=== PATIENT | male | born 1935 | race Caucasian/White ===

== ENCOUNTER → 2018-08-19 09:03 | Outpatient (CLI) | payer MEDICARE, OTHER, SELFPAY ==
--- NOTE | 2018-08-19 09:12 | XR_ITS ---
EXAM: XR thoracic spine 3V HISTORY: ITS.REASON: THORACIC BACK PAIN Comparison: None FINDINGS: Normal alignment. No fracture or dislocation. No lytic or blastic change. No significant degenerative change. The disc spaces are preserved. IMPRESSION: Negative thoracic spine
--- NOTE | 2018-08-19 09:12 | XR_ITS ---
XR chest 2V HISTORY: Back pain, shortness of breath, history of smoking ITS.REASON: THORACIC BACK PAIN ORDERING PHYSICIAN: Karlee Whatley MD PATIENT AGE: 83 years COMPARISON: 02/26/2012 FINDINGS: Unremarkable cardiovascular structures. There are chronic changes in the lung bases. No lobar consolidation or collapse. No acute bony findings. IMPRESSION: No change with no acute finding
== END ==
PROVIDERS: PCP Family Medicine; Visit Provider Family Medicine
DX: M54.6 Pain in thoracic spine (principal)
CPT/HCPCS: 71046; 72072

== ENCOUNTER → 2019-01-19 11:17 | Outpatient (CLI) | payer MEDICARE, OTHER, SELFPAY ==
--- NOTE | 2019-01-19 11:28 | XR_ITS ---
PROCEDURE: XR LUMBAR SPINE MIN 4V CLINICAL INDICATION: LBP , LT HIP PAIN COMPARISON: from 08/19/2018 FINDINGS: There is mild degenerative disc disease in the lower thoracic spine and upper lumbar spine. No acute fracture or dislocation. No lytic or blastic change. Facet arthritic changes are present at L4-L5 and S1. The SI joints have an unremarkable appearance. There is a 6 mm calcific density overlying the right L1 transverse process and could represent a ureteral stone. Abdominal CT may be of further value. IMPRESSION: 1. Degenerative changes. 2. Possible right ureteropelvic junction stone Dictated by: Aramis Pollock MD 01/19/2019 12:01 Electronically signed by Aramis Pollock MD in [facility] 01/19/2019 12:01
--- NOTE | 2019-01-19 11:28 | XR_ITS ---
PROCEDURE: XR HIP LT 2-3V W/PELVIS CLINICAL INDICATION: LT HIP PAIN Low back pain, left hip COMPARISON: No exams were available for comparison FINDINGS: No fracture or dislocation. No lytic or blastic change. There is generalized vascular calcification. Minimal osteoarthritic changes are noted. IMPRESSION: No acute findings. Dictated by: Aramis Pollock MD 01/19/2019 12:05 Electronically signed by Aramis Pollock MD in [facility] 01/19/2019 12:05
== END ==
PROVIDERS: PCP Family Medicine; Visit Provider Family Medicine
DX: M54.9 Dorsalgia, unspecified (principal); M25.552 Pain in left hip
CPT/HCPCS: 72110; 73502

== ENCOUNTER → 2020-01-26 13:22 | Outpatient (CLI) | payer MEDICARE, OTHER, SELFPAY ==
--- NOTE | 2020-01-26 13:35 | US_ITS ---
PROCEDURE: US KIDNEY CLINICAL INDICATION: COMPARISON: No exams were available for comparison FINDINGS: The right kidney is [id number]. No hydronephrosis, cortical thinning, or renal mass or perinephric fluid collection is evident. The left kidney is [id number]. No hydronephrosis, cortical thinning, or renal mass or perinephric fluid collection is evident. There are no previous exams available for comparison. There was a 2.5 x 1.7 cm area of decreased echogenicity in the upper pole of the right kidney which may be due to a cyst however, this is not definite as there are low level internal echoes. There is some enhanced through transmission of sound. IMPRESSION: No hydronephrosis. There is a questionable cyst along the upper pole of the right kidney. Cannot exclude the possibility of a solid lesion based on the ultrasound appearance. Suggest 3 six-month follow-up to confirm short term stability. Dictated by: Aramis Pollock MD 01/26/2020 15:10 Aramis Pollock MD in [facility] 01/26/2020 15:10
== END ==
PROVIDERS: PCP Family Medicine; Visit Provider Urology
DX: N28.89 Other specified disorders of kidney and ureter (principal)
CPT/HCPCS: 76770

== ENCOUNTER → 2020-02-10 08:02 | Outpatient (CLI) | payer MEDICARE, OTHER, SELFPAY ==
--- NOTE | 2020-02-10 08:23 | MR_ITS ---
PROCEDURE: MR PELVIS WO/W CON CLINICAL INDICATION: renal mass renal mass seen on ultrasound 01-26-20. abd pain, vomiting, diarrhea. 20ml prohance injected. pt got nauseated and vomited after injection of contrast. COMPARISON: No exams were available for comparison TECHNIQUE: Routine multiplanar multi echo sequences are performed without and with gadolinium enhancement. FINDINGS: No pelvic mass or abnormal fluid collection evident. No abnormal areas of enhancement. Minimal osteoarthritic changes are present in the hips. IMPRESSION: Unremarkable MRI the pelvis Dictated by: Aramis Pollock MD 02/14/2020 12:24 Aramis Pollock MD in [facility] 02/14/2020 12:24
--- NOTE | 2020-02-10 08:23 | MR_ITS ---
PROCEDURE: MR ABDOMEN WO/W CON CLINICAL INDICATION: renal mass renal mass seen on ultrasound 01-26-20. abd pain, vomiting, diarrhea. 20ml prohance injected. pt got nauseated and vomited after injection of contrast. COMPARISON: US US KIDNEY from 01/26/2020 TECHNIQUE: Routine multiplanar multi echo sequences are performed without gadolinium enhancement. FINDINGS: Motion artifact degrades the quality the exam. The patient experienced vomiting and nausea after contrast injection and had to get up therefore, there are some post enhanced sequences missing. Specifically, the portal venous phase was not able to be obtained. There is a lobulated cystic lesion within the left lobe of the liver measuring 18 mm this liver lesion did not demonstrate any enhancement. There is an exophytic 1.9 cm lesion projecting off the posterior aspect of the right kidney inferiorly. This is isointense on T1 and hyperintense on T2. The coronal T2 haste images however show some possible septations within the lesion and the post enhanced images suggest some in Zeynep mint. This however is questionable due to the motion artifact. Suggest patient have a CT scan with renal protocol for further evaluation. No other renal lesions are evident. The pancreas and adrenal glands have an unremarkable appearance. IMPRESSION: 1. Indeterminate right renal lesion. Motion artifact and missing post enhanced images degrade the quality of this exam. The coronal T2 haste images suggest some internal septations or nodularity and the post enhanced images suggest a solid configuration with mild enhancement. This however could is possibly due to artifact. Suggest CT of the kidneys with renal protocol without and with contrast for further evaluation. 2. Hepatic cyst Dictated by: Aramis Pollock MD 02/14/2020 11:43 Aramis Pollock MD in [facility] 02/14/2020 11:43
[2020-02-10 08:25] LABS: Blood Urea Nitrogen 31 mg/dl (9-20); Estimated Glomerular Filt Rate 41 ml/min (>60); GFR (African American) 50 ML/MIN (>60)
== END ==
PROVIDERS: PCP Family Medicine; Visit Provider Urology
DX: N28.89 Other specified disorders of kidney and ureter (principal)
CPT/HCPCS: 36415; 72197; 74183; 82565; 84520; A9576

== ENCOUNTER → 2020-03-29 14:51 | Outpatient (CLI) | payer MEDICARE, OTHER, SELFPAY ==
--- NOTE | 2020-03-29 14:56 | MR_ITS ---
PROCEDURE: MR LUMBAR SPINE WO CON CLINICAL INDICATION: LOW BACK PAIN CONSTANT LBP. PHYSICAL THERAPY NOT HELPING. LT LEG PAIN. COMPARISON: CR XR LUMBAR SPINE MIN 4V from 01/19/2019 US US KIDNEY from 01/26/2020 TECHNIQUE: Standard multiplanar multiecho sequences are performed without contrast. 3-D MIP and myelographic images are also rendered and reviewed FINDINGS: There is normal alignment. The spinal cord ends at T12-L1 level. T11-T12: Unremarkable. T12-L1: Unremarkable. L1-L2: Unremarkable. L2-L3: There is a small broad-based left paracentral lateral disc protrusion along with facet and ligamentum hypertrophy causing moderate left lateral recess narrowing and left-sided foraminal narrowing. There does appear to be some mild impingement upon the left L3 nerve root. L3-L4: Degenerative disc disease with mild bulging disc. There is moderate to severe facet and ligamentum hypertrophy with resultant canal stenosis moderate to severe bilateral lateral recess narrowing bilateral lateral recess narrowing and moderate bilateral foraminal narrowing. Canal measures 8 mm at this region. Small amount fluid is present in the facet joint on the left. L4-5: Mild bulging disc with moderate to severe facet and ligamentum hypertrophy. There is severe bilateral lateral recess narrowing along with canal stenosis and moderate to severe bilateral foraminal narrowing. Small amount fluid is present in the facet joint on the left. There is 2 mm anterolisthesis of L4. L5-S1: Mild degenerative disc disease with facet and ligamentum hypertrophy with moderate to severe bilateral foraminal narrowing. Incidental note is made of a 2 cm right renal cyst IMPRESSION: Abnormal MRI of the lumbar spine with facet and ligamentum hypertrophy resulting in lateral recess narrowing, foraminal narrowing and canal stenosis. Please see above for detailed description at each level. Small broad-based left paracentral/lateral disc protrusion at L2-L3 Dictated by: Aramis Pollock MD 03/30/2020 10:21 Aramis Pollock MD in [facility] 03/30/2020 10:21
== END ==
PROVIDERS: PCP Family Medicine; Visit Provider Family Medicine
DX: M54.5 Low back pain (principal)
CPT/HCPCS: 72148; 76376

== ENCOUNTER → 2020-08-10 08:00 | Outpatient (CLI) | payer MEDICARE, OTHER, SELFPAY ==
--- NOTE | 2020-08-10 08:11 | CT_ITS ---
PROCEDURE: CT ABDOMEN PELVIS WO CON CLINICAL INDICATION: renal mass COMPARISON: MR MR ABDOMEN WO/W CON from 02/10/2020 TECHNIQUE: Axial images obtained with sagittal and coronal reformats. All CT scans at the facility use one or more dose reduction, viz: automated exposure control, ma/kV adjustment per patient size (including targeted exams where dose is matched to indication, i.e. head), or iterative reconstruction technique. FINDINGS: LOWER THORAX: Coronary artery calcifications are noted. ABDOMEN & PELVIS: 1.6 cm hypodensity involves the left hepatic lobe and may represent a hepatic cyst within segment 2. There has been a prior cholecystectomy. The spleen shows an unremarkable appearance. Unremarkable appearing adrenal glands and pancreas. There is a 1.9 x 1.4 cm exophytic nodule projecting off the posterior and inferior aspect of the right kidney. The density is 17 Hounsfield units. The patient refused IV contrast limiting evaluation of the right renal nodule. No renal or ureteral calculi. No hydronephrosis. There is faint increased density within the central mesenteric fat nonspecific with a few scattered small mesenteric lymph nodes. No evidence of appendicitis. There are scattered colonic diverticula but no evidence of diverticulitis. There is a small umbilical hernia containing fat. There is a small left inguinal hernia containing fat. There are mild degenerative changes in the lumbar spine. There is dilatation of the right common iliac artery distally at 2 cm. There is minimal dilatation of the infrarenal portion of the aorta at 2.6 cm. Mild gynecomastia noted. IMPRESSION: 1. Indeterminate 1.9 x 1.4 cm exophytic right renal nodule. The size of the nodule is stable compared to 02/10/2020. Patient refused IV contrast limiting evaluation of the nodule. 2. Left lobe hepatic cyst 3. Patchy density within the central mesenteric fat nonspecific and could be seen with mesenteric adenitis or edema or could be idiopathic among other less common entities. 4. 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 Dictated by: Aramis Pollock MD 08/10/2020 12:50 Aramis Pollock MD in [facility] 08/10/2020 12:50
[2020-08-10 08:25] LABS: Blood Urea Nitrogen 33 mg/dl (9-20); Estimated Glomerular Filt Rate 41 ml/min (>60); GFR (African American) 50 ML/MIN (>60)
== END ==
PROVIDERS: PCP Family Medicine; Visit Provider Urology
DX: N28.89 Other specified disorders of kidney and ureter (principal)
CPT/HCPCS: 36415; 74176; 82565; 84520

== ENCOUNTER → 2021-02-22 08:16 | Outpatient (CLI) | payer MEDICARE, OTHER, SELFPAY ==
--- NOTE | 2021-02-22 08:16 | CT_ITS ---
PROCEDURE: CT ABDOMEN PELVIS WO/W CON CLINICAL INDICATION: RENAL MASS COMPARISON: CT CT ABDOMEN PELVIS WO CON from 08/10/2020 TECHNIQUE: IV Contrast: 75ML Isovue 370 Oral Contrast None Axial images obtained with sagittal and coronal reformats. All CT scans at the facility use one or more dose reduction, viz: automated exposure control, ma/kV adjustment per patient size (including targeted exams where dose is matched to indication, i.e. head), or iterative reconstruction technique. FINDINGS: LOWER THORAX: Mild pleural thickening is present involving the right lower lobe posterior laterally. This is not significantly changed. Coronary artery calcifications are present. Mitral valve annular calcifications are noted. ABDOMEN & PELVIS: Hypodensity is present in the left hepatic lobe segment 2 slightly larger from the previous exam measuring 17 mm previously measuring 15 mm but is at water density suggesting a cyst. There has been a prior cholecystectomy. The spleen, pancreas, and adrenal glands have an unremarkable appearance. There is an exophytic right renal mass involving the posterior aspect of the right kidney measuring approximately 2 cm there is some mild heterogeneous enhancement of the nodule mostly peripheral. The overall size of the nodule is not significantly changed. The nodule however does have a suspicious appearance no renal or ureteral calculi. No hydronephrosis. No periaortic adenopathy. There is diffuse atherosclerotic aorta with mild dilatation of the infrarenal aspect of the abdominal aorta at 2.7 cm. Right renal artery extensive calcification is noted. There is ectasia of the right common iliac artery at 1.7 cm in diameter. No intestinal obstruction or free air is evident. No evidence of appendicitis. There is colonic diverticulosis but no evidence of diverticulitis. There is a small left inguinal hernia containing fat. No acute bony anomaly evident. IMPRESSION: 1. Overall no change in the exophytic right renal mass measuring approximately 2 cm. The nodule is suspicious for neoplasm. 2. Mild dilatation of the infrarenal aorta at 2.7 cm with atherosclerotic changes of the aortoiliac vessels and right renal artery 3. Other nonacute findings as described above. Dictated by: Aramis Pollock MD 02/22/2021 12:48 Aramis Pollock MD in [facility] 02/22/2021 12:48
[2021-02-22 08:43] LABS: Blood Urea Nitrogen 30 mg/dl (9-20); Estimated Glomerular Filt Rate 41 ml/min (>60); GFR (African American) 50 ML/MIN (>60)
== END ==
PROVIDERS: PCP Family Medicine; Visit Provider Urology
DX: N28.89 Other specified disorders of kidney and ureter (principal)
CPT/HCPCS: 36415; 74178; 82565; 84520; Q9967

== ENCOUNTER 2021-12-20 20:25 | Observation (INO) | payer MEDICARE, OTHER, SELFPAY ==
[2021-12-20 20:27] VITALS: BP 153/71; PULSE 99; RESP 23; TEMP 36.7; O2SAT 98
--- NOTE | 2021-12-20 21:58 | CT_ITS ---
PROCEDURE INFORMATION: Exam: CT Head Without Contrast Exam date and time: 12/20/2021 10:12 PM Age: 86 years old Clinical indication: Injury or trauma; Fall; Blunt trauma (contusions or hematomas); Additional info: Fall minor trauma TECHNIQUE: Imaging protocol: Computed tomography of the head without contrast. Radiation optimization: All CT scans at this facility use at least one of these dose optimization techniques: automated exposure control; mA and/or kV adjustment per patient size (includes targeted exams where dose is matched to clinical indication); or iterative reconstruction. COMPARISON: No relevant prior studies available. FINDINGS: Brain: Moderate atrophy. No intracranial hemorrhage. No mass. Several scattered foci of decreased attenuation within periventricular/subcortical white matter. No edema. Cerebral ventricles: No hydrocephalus. Paranasal sinuses: Scattered minimal mucosal thickening. Few small retention cysts. Mastoid air cells: No significant effusion. Orbital cavities: Unremarkable as visualized. Bones/joints: No acute fracture. Soft tissues: Unremarkable. Vasculature: Atherosclerotic disease of intracranial arteries. IMPRESSION: 1. No intracranial hemorrhage. 2. Probable chronic microvascular ischemic changes.
--- NOTE | 2021-12-20 21:58 | CT_ITS ---
PROCEDURE INFORMATION: Exam: CT Chest Without Contrast; Diagnostic Exam date and time: 12/20/2021 10:15 PM Age: 86 years old Clinical indication: Injury or trauma; Fall; Blunt trauma (contusions or hematomas); Additional info: Fall/ left rib pain TECHNIQUE: Imaging protocol: Diagnostic computed tomography of the chest without contrast. 3D rendering (Not supervised by radiologist): MIP and/or 3D reconstructed images were created by the technologist. Radiation optimization: All CT scans at this facility use at least one of these dose optimization techniques: automated exposure control; mA and/or kV adjustment per patient size (includes targeted exams where dose is matched to clinical indication); or iterative reconstruction. COMPARISON: CR (CHEST PA, CHEST, CHEST PA) 08/19/2018 9:27 AM FINDINGS: Lungs: Mild scarring and atelectasis in the lower lungs. Pleural spaces: Unremarkable. No pneumothorax. No pleural effusion. Heart: Coronary artery calcifications. Cardiomegaly. Mitral and aortic valve calcifications. Lymph nodes: Unremarkable. No enlarged lymph nodes. Vasculature: Enlarged pulmonary arteries likely represent chronic pulmonary arterial hypertension. Moderate to advanced atherosclerotic disease of the aorta. Bones/joints: Acute appearing left 6th through 9th anterior rib fractures. Soft tissues: Unremarkable. Other findings: Stigmata of old granulomatous disease. IMPRESSION: 1. No acute intrathoracic organ injury. 2. Acute appearing left 6th through 9th anterior rib fractures. PROCEDURE INFORMATION: Exam: CT Abdomen Without Contrast Exam date and time: 12/20/2021 10:15 PM Age: 86 years old Clinical indication: Injury or trauma; Fall; Blunt trauma (contusions or hematomas); Additional info: Fall/ left rib pain TECHNIQUE: Imaging protocol: Computed tomography of the abdomen without contrast. COMPARISON: CT ABDOMEN PELVIS WO/W CON 02/22/2021 9:40 AM FINDINGS: Liver: Low attenuation hepatic lesions measuring up to 2 cm in diameter are incompletely characterized, but are likely cysts. No followup imaging is recommended. Gallbladder and bile ducts: Gallbladder is absent. Pancreas: Normal. No ductal dilation. Spleen: Normal. No splenomegaly. Adrenal glands: Normal. No mass. Kidneys and ureters: Low attenuation renal lesions measuring up to 1.7 cm in diameter are incompletely characterized, but are likely cysts. No followup imaging is warranted. Stomach and bowel: Visualized stomach and bowel are unremarkable. No obstruction. No mucosal thickening. Appendix: Unremarkable appendix. Intraperitoneal space: Unremarkable. No free air. No significant fluid collection. Vasculature: The arteries demonstrate severe atherosclerotic disease. Mild infrarenal abdominal aortic ectasia. Lymph nodes: Unremarkable. No enlarged lymph nodes. Bones/joints: Unremarkable. No acute fracture. No dislocation. Soft tissues: Tiny fat containing umbilical hernia. IMPRESSION: No acute intra-abdominal organ injury. COMMENTS: Consistent with the [employer]'s Incidental Findings Committee white paper (J Am Shadia Radiol 2018): Any incidental renal lesion less than 1 cm or classified as too small to characterize, or any incidental cystic renal lesion characterized as simple-appearing, is likely benign. No follow-up imaging is recommended for these lesions per consensus recommendations based on imaging criteria.
--- NOTE | 2021-12-20 22:33 | [facility].EDGENADL ---
Discharge Plan Disposition Patient Disposition: Admitted As Inpatient Condition: Good Chief Complaint: Fall Prescriptions Prescriptions: No Action aspirin-dipyridamole [Aggrenox] 25-200 mg capsule, ER multiphase 12 hr 1 cap PO HS propafenone 150 mg tablet 150 mg PO Q8H hydrochlorothiazide 12.5 mg tablet 12.5 mg PO DAILY rosuvastatin 5 mg tablet 5 mg PO QODHS aspirin [Adult Low Dose Aspirin] 81 mg tablet,delayed release (DR/EC) 81 mg PO DAILY omeprazole magnesium [Prilosec OTC] 20 mg tablet,delayed release (DR/EC) 20 mg PO DAILY meclizine 12.5 mg tablet 12.5 mg PO DAILY nitroglycerin 0.4 mg tablet, sublingual 0.4 mg SUBLINGUAL Q5M PRN (Reason: Chest Pain) Rx Instructions: do not exceed 3 doses per episode hydrocodone-acetaminophen 7.5-300 mg tablet 1 tab PO HS PRN (Reason: chronic pain) coenzyme Q10 [CoQ-10] 100 mg Capsule 100 mg PO DAILY Referrals Follow up/Referrals: Karlee Whatley MD [Primary Care Provider] - See instructions Discharge ED Provider: Kit Pedraza General Adult HPI General Chief complaint: Fall Stated complaint: AO 12/20 FELL AND HURT L RIBS Time Seen by Provider: 12/20/21 21:38 Mode of Arrival: Family Vehicle Source of Information: Patient and Relative Limitations: No Limitations Description of Symptoms (Recalled from ER Triage Doc. by RN): Pt c/o L rib and flank pain after falling in his garage. He reports I got a little ahead of myself and fell forward and into a table or chair. Denies hitting head or any LOC. Tender to L lower ribs and L back. He was able to get up and ambulate on his own after this. Light bruising noted to L flank after. Pt is on aggrenox 20mg daily. History of Present Illness HPI narrative: 86-year-old male who presents after having a fall in his garage. States that he lost his balance trying to reach for his walker and fell between a cabinet his walker and a armrest. The armrest struck him in the left lower ribs. Initially had mild lateral back pain but this is improved he is having severe spasms to the left side of his chest wall 5 out of 10 it rest with any movement or spasm that is 8 out of 10. Denies shortness of breath was feeling fine before hand did not strike his head does not take anticoagulants and denies dizziness or palpitations. No medicine prior to arrival. Related Data Home Medications Medication Instructions Recorded Confirmed aspirin 25 mg-dipyridamole 200 mg 1 cap PO HS Blood thinner 01/21/20 12/20/21 capsule,ext.release 12 hr multiphase (Aggrenox) aspirin 81 mg tablet,delayed 81 mg PO DAILY heart health\ 01/21/20 12/20/21 release (Adult Low Dose Aspirin) hydrochlorothiazide 12.5 mg tablet 12.5 mg PO DAILY heart 01/21/20 12/20/21 hydrocodone 7.5 mg-acetaminophen 1 tab PO HS PRN chronic pain 01/21/20 12/20/21 300 mg tablet meclizine 12.5 mg tablet 12.5 mg PO DAILY inner ear 01/21/20 12/20/21 nitroglycerin 0.4 mg sublingual 0.4 mg sublingual Q5M PRN Chest 01/21/20 12/20/21 tablet Pain omeprazole magnesium 20 mg 20 mg PO DAILY GERD 01/21/20 12/20/21 tablet,delayed release (Prilosec OTC) propafenone 150 mg tablet 150 mg PO Q8H heart 01/21/20 12/20/21 rosuvastatin 5 mg tablet 5 mg PO QODHS Cholesterol 01/21/20 12/20/21 coenzyme Q10 100 mg capsule 100 mg PO DAILY heart 12/20/21 12/20/21 (CoQ-10) Allergies Allergy/AdvReac Type Severity Reaction Status Date / Time Penicillins Allergy Severe Anaphylaxis Verified 12/20/21 21:46 codeine AdvReac Severe Hallucinati Verified 12/20/21 21:46 ng [facility] PFS Medical History History of stroke Melanoma Surgical History H/O heart artery stent H/O hernia repair History of back surgery History of cholecystectomy History of prostate surgery Social History (Reviewed 12/20/21 @ 23:29 by Jennifer Sr
[2021-12-20 22:34] LABS: Basophils % 0.5 % (0.1-2.0); Eosinophils % 0.5 % (0.1-12.0); Hematocrit 45.3 % (42.0-52.0); Hemoglobin 14.4 g/dL (14.1-18.0); Lymphocytes # 1.5 K/mm3 (0.7-4.5); Lymphocytes % 19.2 % (10-50); Mean Corpuscular HGB Conc 31.8 g/dL (31.8-35.4); Mean Corpuscular Hemoglobin 32.3 pg (27.0-31.2); Mean Corpuscular Volume 101.5 fl (80-94); Mean Platelet Volume 8.6 fl (7.4-10.4); Monocytes # 0.4 K/mm3 (0.1-1.0); Monocytes % 5.3 % (1.7-9.3); Neutrophils # 5.6 K/mm3 (1.8-7.8); Neutrophils % 74.6 % (37.0-80.0); Platelet Count 280 K/mm3 (142-424); Red Blood Count 4.46 M/mm3 (4.60-6.20); Red Cell Distribution Width 13.4 % (11.5-17.5); White Blood Count 7.5 K/mm3 (4.8-10.8)
--- NOTE | 2021-12-20 22:36 | PC.NURSE ---
at bedside to review CT review, Still awaiting on vrad report
[2021-12-20 23:02] LABS: Activated Partial Thrombo Time 26.7 seconds (22.8-30.6); INR 0.94 (0.9-1.1); Prothrombin Time 10.2 seconds (10.1-12.5)
[2021-12-20 23:06] LABS: Chloride 102 mmol/L (98-107); Potassium 4.6 mmoL/L (3.5-5.1); Sodium 142 mmol/L (136-145)
[2021-12-20 23:09] LABS: Anion Gap 15.6 mEq/L (5-15); Blood Urea Nitrogen 38 mg/dl (9-20); Carbon Dioxide 29 mmol/L (22.0-30.0); Creatinine Clearance Estimated 1 mL/min (50-200); Estimated Glomerular Filt Rate 36 ml/min (>60); GFR (African American) 43 ML/MIN (>60)
[2021-12-20 23:10] LABS: Calcium 8.7 mg/dl (8.4-10.2); Glucose 108 mg/dl (74-100)
--- NOTE | 2021-12-20 23:33 | PC.NURSE ---
ER speaking with hospitalist at this time
[2021-12-20 23:48] VITALS: BMI 34.3
[2021-12-21] VITALS (7 sets, daily range): BP systolic 113–162; BP diastolic 53–74; PULSE 60–81; RESP 16–20; TEMP 36.6–36.7; O2SAT 94–98
--- NOTE | 2021-12-21 00:01 | EXP.HP ---
History of Present Illness *Admission Date: 12/21/21 *Reason for visit:: Fall, Pain, Acute Rib Fractures *History of present illness: Mr. Cassidy is a 86-year-old male with a past medical history of Heart Arrythmias, CKD, Chronic Vertigo, Hyperlipidemia and HTN. He presents to [facility] following a mechanical fall in his home that occurred at ground level a few hours prior to presentation. The patient was seen in the ER on admission, his daughter was at bedside. He reports that he went to his garage and he lost his balance, he fell striking his chest area. He denies any loss of conciousness. He reports that the fall resulted in immediate pain in the left chest region. In the ER, the patient underwent a CT of the head without contrast that showed no acute intracranial abnormalities. CT of the chest without contrast showed acute appearing fractures of the 6th-9th anterior. The patient is reporting significant pain. The patient will be admitted for pain control, PT will be consulted to see. The plan of care was discussed with both the patient and his daughter at bedside. Both verbalized understanding and agreement with the plan of care. [facility] Medical History (Updated 12/21/21 @ 01:40 by Michelle Finch RN) Chronic kidney disease High cholesterol History of stroke Hypertension Melanoma Surgical History H/O heart artery stent H/O hernia repair History of back surgery History of cholecystectomy History of prostate surgery Social History Smoking Status: Former smoker alcohol intake: former substance use type: denies use current occupational status: retired Travel in the last 8 weeks: None household members: spouse and family housing: house Review of Systems Review of Systems Review of systems:: pertinent systems reviewed and negative unless documented below Constitutional Constitutional: Reports system reviewed and no additional complaints, except as documented Eyes Eyes: Reports system reviewed and no additional complaints, except as documented ENT Ears, Nose, Mouth, and Throat: Reports system reviewed and no additional complaints, except as documented *Cardiovascular Cardiovascular: Reports chest pain *Respiratory Respiratory: Reports system reviewed and no additional complaints, except as documented *Gastrointestinal Gastrointestinal: Reports system reviewed and no additional complaints, except as documented *Genitourinary Genitourinary: Reports system reviewed and no additional complaints, except as documented *Musculoskeletal Comments: Pain in left chest wall at injury site Integumentary/Breasts Skin/Breast: Reports system reviewed and no additional complaints, except as documented *Neurologic Neurologic: Reports system reviewed and no additional complaints, except as documented Psychiatric Psychiatric: Reports system reviewed and no additional complaints, except as documented Endocrine Endocrine: Reports system reviewed and no additional complaints, except as documented Hematologic/Lymphatic Hematologic/Lymphatic: Reports system reviewed and no additional complaints, except as documented Allergic/Immunologic Allergic/Immunologic: Reports system reviewed and no additional complaints, except as documented Meds Home Medications and Allergies Home Medications Medication Instructions Recorded Confirmed Type aspirin 25 mg-dipyridamole 200 mg 1 cap PO HS Blood thinner 01/21/20 12/20/21 History capsule,ext.release 12 hr multiphase (Aggrenox) aspirin 81 mg tablet,delayed 81 mg PO DAILY heart health\ 01/21/20 12/20/21 History release (Adult Low Dose Aspirin) hydrochlorothiazide 12.5 mg tablet 12.5 mg PO DAILY heart 01/21/20 12/20/21 History meclizine 12.5 mg tablet 12.5 mg PO DAILY inner ear 01/21/20 12/20/21 History nitroglycerin 0.4 mg sublingual 0.4 mg sublingual
[2021-12-21 00:12] LABS: Coronavirus 19, PCR Not Detected (NotDetected); Influenza A, PCR Not Detected (NotDetected); Influenza B, PCR Not Detected (NotDetected)
--- NOTE | 2021-12-21 00:49 | PC.NURSE ---
PT ARRIVED TO FLOOR VIA WHEELCHAIR AT THIS TIME.
--- NOTE | 2021-12-21 04:28 | PC.NURSE ---
pt A&OX4. pt has rested quietly since arriving to the floor. pt has reported no pain. VSS
--- NOTE | 2021-12-21 05:53 | PC.NURSE ---
0600 Courtesy Round Trash emptied and ice water refilled
[2021-12-21 06:50] LABS: Chloride 102 mmol/L (98-107); Sodium 137 mmol/L (136-145)
[2021-12-21 06:51] LABS: Potassium 4.2 mmoL/L (3.5-5.1)
[2021-12-21 06:53] LABS: Alanine Aminotransferase 9 U/L (12-78); Albumin Level 3.7 g/dl (3.5-5.0); Albumin/Globulin Ratio 1.5 (1.1-1.8); Alkaline Phosphatase 67 U/L (38-126); Anion Gap 12.2 mEq/L (5-15); Aspartate Amino Transferase 30 U/L (17-59); Bilirubin,Total 0.5 mg/dl (0.2-1.3); Blood Urea Nitrogen 36 mg/dl (9-20); Calcium 8.2 mg/dl (8.4-10.2); Carbon Dioxide 27 mmol/L (22.0-30.0); Creatinine Clearance Estimated 45 mL/min (50-200); Estimated Glomerular Filt Rate 41 ml/min (>60); GFR (African American) 50 ML/MIN (>60); Globulin 2.5 g/dL (1.3-3.2); Glucose 91 mg/dl (74-100); Total Protein,Serum 6.2 g/dl (6.3-8.2)
[2021-12-21 07:14] LABS: Basophils % 0.6 % (0.1-2.0); Eosinophils % 0.8 % (0.1-12.0); Hematocrit 37.4 % (42.0-52.0); Lymphocytes # 1.2 K/mm3 (0.7-4.5); Lymphocytes % 24.7 % (10-50); Mean Corpuscular HGB Conc 32.3 g/dL (31.8-35.4); Mean Corpuscular Hemoglobin 32.4 pg (27.0-31.2); Mean Corpuscular Volume 100.2 fl (80-94); Mean Platelet Volume 9.1 fl (7.4-10.4); Monocytes # 0.4 K/mm3 (0.1-1.0); Monocytes % 8.5 % (1.7-9.3); Neutrophils # 3.2 K/mm3 (1.8-7.8); Neutrophils % 65.4 % (37.0-80.0); Platelet Count 225 K/mm3 (142-424); Red Blood Count 3.73 M/mm3 (4.60-6.20); Red Cell Distribution Width 13.6 % (11.5-17.5); White Blood Count 4.9 K/mm3 (4.8-10.8)
[2021-12-21 07:20] LABS: Hemoglobin 12.1 g/dL (14.1-18.0)
--- NOTE | 2021-12-21 08:21 | EXP.DC.SUM ---
General Admission date:: 12/21/21 Discharge date: 12/21/21 HPI HPI HPI: Mr. Cassidy is a 86-year-old male with a past medical history of Heart Arrythmias, CKD, Chronic Vertigo, Hyperlipidemia and HTN. He presents to [facility] following a mechanical fall in his home that occurred at ground level a few hours prior to presentation. The patient was seen in the ER on admission, his daughter was at bedside. He reports that he went to his garage and he lost his balance, he fell striking his chest area. He denies any loss of conciousness. He reports that the fall resulted in immediate pain in the left chest region. In the ER, the patient underwent a CT of the head without contrast that showed no acute intracranial abnormalities. CT of the chest without contrast showed acute appearing fractures of the 6th-9th anterior. The patient is reporting significant pain. The patient will be admitted for pain control, PT will be consulted to see. The plan of care was discussed with both the patient and his daughter at bedside. Both verbalized understanding and agreement with the plan of care. Hospital Course Hospital Course Hospital Course: Admitted for rib fractures and pain control. Required 2 doses of morphine during hospitalization. Remained hemodynamically stable. Tolerating p.o. intake and ambulating with minimal assistance. Using walker which is his baseline. PT OT saw patient, no further recommendations other than home with home health PT. We will send extra pain medication for pain control. Counseled patient and family on need for taking it easy and managing pain as the only effective treatment for rib fractures. Follow-up with his PCP in the coming weeks for further monitoring. Medically stable for discharge home. Exam Data for Last 24 hours Vital signs and Labs for Last 24 Hours: Temp Pulse Resp BP Pulse Ox 98.1 F 61 16 143/53 H 94 L 12/21/21 04:00 12/21/21 04:00 12/21/21 04:00 12/21/21 04:00 12/21/21 04:00 Laboratory Results - last 24 hr 12/20/21 00:02: SARS-CoV-2 (PCR) Not detected, Influenza A Untype (PCR) Not detected, Influenza Type B (PCR) Not detected 12/20/21 22:15: WBC 7.5, RBC 4.46 L, Hgb 14.4, Hct 45.3, MCV 101.5 H, MCH 32.3 H, MCHC 31.8, RDW 13.4, Plt Count 280, MPV 8.6, Neut % (Auto) 74.6, Lymph % (Auto) 19.2, [place] % (Auto) 5.3, Eos % (Auto) 0.5, Baso % (Auto) 0.5, Neut # (Auto) 5.6, Lymph # (Auto) 1.5, [place] # (Auto) 0.4, Eos # (Auto) 0.0, Baso # (Auto) 0.0 12/20/21 22:15: PT 10.2, INR 0.94, APTT 26.7 12/20/21 22:15: Sodium 142, Potassium 4.6, Chloride 102, Carbon Dioxide 29, Anion Gap 15.6 H, BUN 38 H, Creatinine 1.80 H, Estimated Creat Clear 1, Estimated GFR 36 L, Est GFR ( Amer) 43 L, Glucose 108 H, Calcium 8.7 12/21/21 06:14: Sodium 137, Potassium 4.2, Chloride 102, Carbon Dioxide 27, Anion Gap 12.2, BUN 36 H, Creatinine 1.60 H, Estimated Creat Clear 45, Estimated GFR 41 L, Est GFR ( Amer) 50 L, Glucose 91, Calcium 8.2 L, Total Bilirubin 0.5, AST 30, ALT 9 L, Alkaline Phosphatase 67, Total Protein 6.2 L, Albumin 3.7, Globulin 2.5, Albumin/Globulin Ratio 1.5 12/21/21 06:14: WBC 4.9 D, RBC 3.73 L, Hgb 12.1 L D, Hct 37.4 L, MCV 100.2 H, MCH 32.4 H, MCHC 32.3, RDW 13.6, Plt Count 225, MPV 9.1, Neut % (Auto) 65.4, Lymph % (Auto) 24.7, [place] % (Auto) 8.5, Eos % (Auto) 0.8, Baso % (Auto) 0.6, Neut # (Auto) 3.2, Lymph # (Auto) 1.2, [place] # (Auto) 0.4, Eos # (Auto) 0.0, Baso # (Auto) 0.0 I & O for Last 24 hours: Intake & Output 12/18/21 12/19/21 12/20/21 12/21/21 23:59 23:59 23:59 23:59 Weight 96.842 kg Constitutional Constitutional: no acute distress *Routine HEENT Exam Head: Present normocephalic Eye: Present EOMI and PERRL ENT: Present mucous membranes moist *Routine Neck Exam Neck: Present supple; Absent lymphadenopathy Routine Chest/Breast/Axilla Exam Chest wall: Present tenderness *Routine Respiratory Exam Respiratory: Present CTA bilaterally *Routine Cardio
--- NOTE | 2021-12-21 09:57 | HMH.PTEV ---
Physical Therapy Evaluation Rehab PT IP Evaluation Start: 12/20/21 23:59 Freq: ONCE Status: Active Protocol: Document 12/21/21 09:50 PHOSETH (Rec: 12/21/21 09:57 PHORNE [id number]) Subjective/History History History Pt is 86 yowm adm to [facility] after ground level fall at home with resulting rib fxs 6-9. 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 He has ramp to enter the home and uses a RW for ambulation. Subjective Subjective He reports pain with all mobility in his ribs. Rehab PT IP Eval Objective Appearance Patient Behavior Appropriate Patient Orientation Person,Place,Time Difficulty following instructions none Speech Pattern Clear Ambulation Patient Able to Ambulate Yes Ambulation Observation IP General Gait Pattern Observation Shuffling Step Ambulation Distance (feet) 20 Ambulation Assistive Device Rolling Walker Ambulation Ability Supervision/Stand by Balance Ability to Arise Able, uses arms to help Sitting Balance Steady, safe Standing Balance Steady, wide stance Dynamic Sitting Balance Ability Good Dynamic Standing Balance Ability Fair Transfers Bed Transfer Ability Supervision/Stand by Chair Transfer Ability Supervision/Stand by Sit to Stand Bed Transfer Ability Supervision/Stand by Sit to Stand Chair Transfer Ability Supervision/Stand by ROM All Extremities PT ROM Status WFL MMT All Extremities PT MMT WFL Rehab PT IP prob,goals,plan Problems Date of Evaluation: 12/21/21 Discharge Plan PT Discharge Plan Pt is appropriate to return home once medically stable, recommend HHPT to increase mobility as able. He has all necessary equipment at [facility] already. G -code Required No Eval Complexity Eval Charge Codes 27135 - Moderate Complexity PHYSICIAN CERTIFICATION: I certify the specified therapy services for Manny Cassidy are required, authorized, and reviewed every 30 days.
--- NOTE | 2021-12-21 11:24 | SW/DCPLANNER ---
Addendum entered by Ruth Paez 12/21/21 12:33: Ashley godwin/ Hal stated that services will begin on Friday for this patient. Original Note: PT/OT evaluated this patient and recommended home health services. Patient is agreeable to home health at this time and does not have a preference as to which agency due to never using home health in the past. Patient information/order has been faxed to [facility] services. I will follow up with Ashley at [facility] once information is reviewed.
--- NOTE | 2021-12-21 12:03 | HMH.PHAINT1 ---
Pharmacy Intervention Comments: DISCHARGE MEDICATION COUNSELING PROVIDED. DISCUSSED INCREASE IN NORCO FREQUENCY FROM DAILY AT BEDTIME TO EVERY 6 HOURS NEEDED FOR PAIN. WATCH FOR INCREASED SEDATION, UPSET STOMACH. PATIENT VERBALIZED NO QUESTIONS AT THIS TIME.
--- NOTE | 2021-12-24 12:25 | CARE MANAGER ---
Spoke with patient who states he is thinking he is doing better as he was able to have a bowel movement today. He is having increased pain, but has not taken the pain medication due to the constipation issue. Home health came today and he is aware of follow up appointment. Denies other questions or concerns. JOSE Barrett
== END 2021-12-21 13:16 | disposition home health service (06) ==
LOC: ER 23:38 → 2ND 12-21 00:27
PROVIDERS: Nurse Practitioner Family; Admitting Provider Internal Medicine Adolescent Medicine; Emergency Provider Student in an Organized Health Care Education/Training Program; PCP Family Medicine; Visit Provider Internal Medicine Adolescent Medicine
DX: S22.42XA Multiple fractures of ribs, left side, initial encounter for closed fracture (principal); N18.9 Chronic kidney disease, unspecified; R42 Dizziness and giddiness; E78.5 Hyperlipidemia, unspecified; I12.9 Hypertensive chronic kidney disease with stage 1 through stage 4 chronic kidney disease, or unspecified chronic kidney disease; Z79.899 Other long term (current) drug therapy
CPT/HCPCS: G0378; 36415; 70450; 71250; 80048; 80053; 85025; 85610; 85730; 97162; 99285; C9803; U0003; U0005

== ENCOUNTER → 2022-11-22 11:19 | Outpatient (CLI) | payer MEDICARE, OTHER, SELFPAY ==
[2022-11-22 11:28] LABS: Microscopic, Urine URINE MICROSCOPIC (MICROSCOPIC)
[2022-11-22 11:59] LABS: Basophils % 0.3 % (0.1-2.0); Eosinophils # 0.2 K/mm3 (0.0-0.4); Eosinophils % 4.1 % (0.1-12.0); Hematocrit 38.2 % (42.0-52.0); Hemoglobin 11.9 g/dL (14.1-18.0); Lymphocytes # 1.1 K/mm3 (0.7-4.5); Lymphocytes % 24.1 % (10-50); Mean Corpuscular HGB Conc 31.3 g/dL (31.8-35.4); Mean Corpuscular Hemoglobin 31.8 pg (27.0-31.2); Mean Corpuscular Volume 101.8 fl (80-94); Mean Platelet Volume 8.5 fl (7.4-10.4); Monocytes # 0.3 K/mm3 (0.1-1.0); Monocytes % 5.4 % (1.7-9.3); Neutrophils % 66.1 % (37.0-80.0); Platelet Count 257 K/mm3 (142-424); Red Blood Count 3.75 M/mm3 (4.60-6.20); Red Cell Distribution Width 12.9 % (11.5-17.5); White Blood Count 4.6 K/mm3 (4.8-10.8)
[2022-11-22 12:41] LABS: Appearance,Urine CLEAR (Clear); Blood, Urine 2+ (Negative); Color,Urine YELLOW (Yellow); Glucose,Urine (UA) Negative (Negative); Ketones,Urine Negative (Negative); Leukocyte Esterase,Urine 1+ (Negative); Nitrate,Urine Negative (Negative); PH,Urine 5.5 (5.0-8.5); Protein,Urine 2+ (Negative); Specific Gravity, Urine >= 1.030 (1.005-1.030); Urobilinogen,Urine 0.2 EU/dl (0.2)
[2022-11-22 12:45] LABS: Bilirubin,Urine 1+ (Negative)
[2022-11-22 12:47] LABS: Bacteria,Urine 2+ /lpf; WBC,Urine 50-100 #/hpf (0-3); Yeast,Urine 1+ /lpf
[2022-11-22 12:49] LABS: Alanine Aminotransferase 14 U/L (12-78); Albumin Level 3.5 g/dl (3.5-5.0); Albumin/Globulin Ratio 1.5 (1.1-1.8); Alkaline Phosphatase 72 U/L (38-126); Anion Gap 11.5 mEq/L (5-15); Aspartate Amino Transferase 23 U/L (17-59); Bilirubin,Total 0.3 mg/dl (0.2-1.3); Blood Urea Nitrogen 31 mg/dl (9-20); Calcium 8.6 mg/dl (8.4-10.2); Carbon Dioxide 26 mmol/L (22.0-30.0); Chloride 109 mmol/L (98-107); Estimated Glomerular Filt Rate 41 ml/min (>60); GFR (African American) 50 ML/MIN (>60); Globulin 2.4 g/dL (1.3-3.2); Glucose 100 mg/dl (74-100); Potassium 4.5 mmoL/L (3.5-5.1); Sodium 142 mmol/L (136-145); Total Protein,Serum 5.9 g/dl (6.3-8.2)
[2022-11-22 12:54] LABS: Iron 74 ug/dL (49-181)
[2022-11-22 13:03] LABS: Total Iron Binding Capacity 287 ug/dL (261-462)
[2022-11-22 13:31] LABS: Ferritin 64.5 ng/ml (17.9-464)
== END ==
PROVIDERS: PCP Family Medicine; Visit Provider Internal Medicine Nephrology
DX: N18.30 Chronic kidney disease, stage 3 unspecified (principal)
CPT/HCPCS: 36415; 80053; 81001; 82728; 83540; 83550; 85025; 87086

== ENCOUNTER → 2022-12-31 14:57 | Outpatient (CLI) | payer MEDICARE, OTHER, SELFPAY ==
[2022-12-31 15:22] LABS: Basophils % 0.3 % (0.1-2.0); Eosinophils # 0.1 K/mm3 (0.0-0.4); Eosinophils % 1.1 % (0.1-12.0); Hematocrit 36.3 % (42.0-52.0); Hemoglobin 12.1 g/dL (14.1-18.0); Lymphocytes # 1.3 K/mm3 (0.7-4.5); Lymphocytes % 22.5 % (10-50); Mean Corpuscular HGB Conc 33.3 g/dL (31.8-35.4); Mean Corpuscular Hemoglobin 33.8 pg (27.0-31.2); Mean Corpuscular Volume 101.4 fl (80-94); Mean Platelet Volume 8.3 fl (7.4-10.4); Monocytes # 0.3 K/mm3 (0.1-1.0); Neutrophils # 3.9 K/mm3 (1.8-7.8); Platelet Count 220 K/mm3 (142-424); Red Blood Count 3.58 M/mm3 (4.60-6.20); White Blood Count 5.6 K/mm3 (4.8-10.8)
[2022-12-31 17:04] LABS: Chloride 107 mmol/L (98-107); Sodium 140 mmol/L (136-145)
[2022-12-31 17:05] LABS: Potassium 4.4 mmoL/L (3.5-5.1)
[2022-12-31 17:07] LABS: Alanine Aminotransferase 17 U/L (12-78); Alkaline Phosphatase 62 U/L (38-126); Anion Gap 11.4 mEq/L (5-15); Aspartate Amino Transferase 33 U/L (17-59); Bilirubin,Total 0.3 mg/dl (0.2-1.3); Blood Urea Nitrogen 26 mg/dl (9-20); Carbon Dioxide 26 mmol/L (22.0-30.0); Estimated Glomerular Filt Rate 52 ml/min (>60); GFR (African American) 63 ML/MIN (>60)
[2022-12-31 17:08] LABS: Albumin/Globulin Ratio 1.6 (1.1-1.8); Calcium 8.6 mg/dl (8.4-10.2); Globulin 2.5 g/dL (1.3-3.2); Glucose 110 mg/dl (74-100); Total Protein,Serum 6.5 g/dl (6.3-8.2)
== END ==
PROVIDERS: PCP Family Medicine; Visit Provider Internal Medicine
DX: N18.30 Chronic kidney disease, stage 3 unspecified (principal)
CPT/HCPCS: 36415; 80053; 85025

== ENCOUNTER 2023-04-29 11:51 | Outpatient (CLI) | payer MEDICARE, OTHER, SELFPAY ==
[2023-04-29 12:01] LABS: Microscopic, Urine URINE MICROSCOPIC (MICROSCOPIC)
[2023-04-29 12:31] LABS: Appearance,Urine CLEAR (Clear); Bilirubin,Urine Negative (Negative); Blood, Urine TRACE-I (Negative); Color,Urine YELLOW (Yellow); Glucose,Urine (UA) Negative (Negative); Ketones,Urine Negative (Negative); Leukocyte Esterase,Urine 2+ (Negative); Nitrate,Urine Negative (Negative); Protein,Urine Negative (Negative); Urobilinogen,Urine 0.2 EU/dl (0.2)
[2023-04-29 12:46] LABS: Bacteria,Urine Trace /lpf; RBC,Urine Occasional #/hpf (0-3); Squamous Epithelial Cell,Urine Occasional #/hpf (0-5); WBC,Urine 20-50 #/hpf (0-3)
[2023-04-29 12:51] LABS: Anion Gap 10.3 mEq/L (5-15); Blood Urea Nitrogen 34 mg/dl (9-20); Calcium 8.9 mg/dl (8.4-10.2); Carbon Dioxide 26 mmol/L (22.0-30.0); Chloride 107 mmol/L (98-107); Estimated Glomerular Filt Rate 44 ml/min (>60); GFR (African American) 53 ML/MIN (>60); Glucose 101 mg/dl (74-100); Potassium 4.3 mmoL/L (3.5-5.1); Sodium 139 mmol/L (136-145)
[2023-04-29 13:03] LABS: Hematocrit 36.4 % (42.0-52.0); Hemoglobin 11.6 g/dL (14.1-18.0)
== END 2023-04-29 23:59 ==
PROVIDERS: PCP Family Medicine; Visit Provider Internal Medicine Nephrology
DX: N18.30 Chronic kidney disease, stage 3 unspecified; I12.9 Hypertensive chronic kidney disease with stage 1 through stage 4 chronic kidney disease, or unspecified chronic kidney disease; B96.29 Other Escherichia coli [E. coli] as the cause of diseases classified elsewhere; R82.90 Unspecified abnormal findings in urine
CPT/HCPCS: 80048; 81001; 85014; 85018; 87086

== ENCOUNTER 2023-08-25 15:33 | Emergency (ER) | payer MEDICARE, OTHER, SELFPAY ==
[2023-08-25 15:34] VITALS: BP 140/61; PULSE 69; RESP 20; TEMP 36.6; O2SAT 97; BMI 32.3
--- NOTE | 2023-08-25 15:43 | XR_ITS ---
PROCEDURE INFORMATION: Exam: XR Right Wrist Exam date and time: 08/25/2023 3:43 PM Age: 88 years old Clinical indication: Pain; Hand; Right; Additional info: Pain along ulnar aspect of hand, unknown injury TECHNIQUE: Imaging protocol: Radiologic exam of the right wrist. Views: 3 or more views. COMPARISON: CR XR FOREARM RT 2V 08/25/2023 3:43 PM FINDINGS: Bones/joints: There is negative ulnar variance. There is diffuse osseous demineralization. The osseous structures are intact, with no signs of acute fracture, dislocation, or malalignment. Age-related degenerative changes are observed. There is no evidence of abnormal bone density or destructive lesions. Soft tissues: The soft tissues appear within normal limits. Vasculature: Scattered atherosclerotic disease of the arterial vasculature. IMPRESSION: At the time of imaging, the study shows no acute osseous abnormalities but does reveal signs of age-related degenerative changes.
--- NOTE | 2023-08-25 15:43 | XR_ITS ---
PROCEDURE INFORMATION: Exam: XR Right Hand Exam date and time: 08/25/2023 3:43 PM Age: 88 years old Clinical indication: Pain; Hand; Right; Additional info: Pain along ulnar aspect of hand, unknown injury TECHNIQUE: Imaging protocol: Radiologic exam of the right hand. Views: 3 or more views. COMPARISON: CR XR FOREARM RT 2V 08/25/2023 3:43 PM FINDINGS: Bones/joints: There is diffuse osseous demineralization. There are degenerative changes of the carpus as well as the interphalangeal joints. The osseous structures are intact, with no signs of acute fracture, dislocation, or malalignment. Age-related degenerative changes are observed. There is no evidence of abnormal bone density or destructive lesions. There is negative ulnar variance. Soft tissues: The soft tissues appear within normal limits. IMPRESSION: At the time of imaging, the study shows no acute osseous abnormalities but does reveal signs of age-related degenerative changes.
--- NOTE | 2023-08-25 15:43 | CA_ITS ---
FINAL REPORT TECHNIQUE: Graded compression, spectral analysis and ultrasound images of the venous system of the upper extremity were obtained. CLINICAL HISTORY: atraumatic pain/swelling COMPARISON: None FINDINGS: The jugular vein, subclavian vein, axillary vein, brachial vein, cephalic vein and basilic venous system are normal, fully compressible and demonstrate no evidence of thrombosis. IMPRESSION: No evidence of thrombosis of the venous system of the right upper extremity. Reviewed, Interpreted and Dictated by Annabelle Petty MD Transcribed by Marisela Villalpando Authenticated and . [facility]
--- NOTE | 2023-08-25 15:43 | XR_ITS ---
PROCEDURE INFORMATION: Exam: XR Right Forearm Exam date and time: 08/25/2023 3:43 PM Age: 88 years old Clinical indication: Pain; Lower or forearm; Right; Additional info: Pain along ulnar aspect of hand, unknown injury TECHNIQUE: Imaging protocol: Radiologic exam of the right forearm. Views: 2 views. COMPARISON: CR XR HAND RT MIN 3V 08/25/2023 3:43 PM FINDINGS: Bones/joints: The osseous structures appear intact with no evidence of acute fracture, dislocation, or malalignment. Joint spaces are preserved. No abnormal bone density or destructive lesions are noted. Soft tissues: Soft tissues appear unremarkable. Vasculature: Scattered atherosclerotic disease of the arterial vasculature. IMPRESSION: At the time of imaging, there is no evidence for acute osseous abnormalities.
[2023-08-25 15:49] VITALS: BP 140/61
[2023-08-25] MEDS: HYDROCODONE/APAP 5/325 MG TABLET 1 TAB PO (15:59)
--- NOTE | 2023-08-25 15:59 | ED_ITS ---
Discharge Plan Disposition Patient Disposition: Home, Self-Care Condition: Good Prescriptions Prescriptions: New diclofenac sodium [Arthritis Pain (diclofenac)] 1 % gel 2 g topical QID Qty: 100 0RF Rx Instructions: apply to single elbow, wrist or hand; for hand includes palm/fingers/back of hand prednisone 50 mg tablet 50 mg PO DAILY 5 Days Qty: 5 0RF No Action aspirin-dipyridamole [Aggrenox] 25-200 mg capsule, ER multiphase 12 hr 1 cap PO HS propafenone 150 mg tablet 150 mg PO Q8H hydrochlorothiazide 12.5 mg tablet 12.5 mg PO DAILY rosuvastatin 5 mg tablet 5 mg PO QODHS aspirin [Adult Low Dose Aspirin] 81 mg tablet,delayed release (DR/EC) 81 mg PO DAILY omeprazole magnesium [Prilosec OTC] 20 mg tablet,delayed release (DR/EC) 20 mg PO DAILY meclizine 12.5 mg tablet 12.5 mg PO DAILY nitroglycerin 0.4 mg tablet, sublingual 0.4 mg SUBLINGUAL Q5M PRN (Reason: Chest Pain) Rx Instructions: do not exceed 3 doses per episode coenzyme Q10 [CoQ-10] 100 mg Capsule 100 mg PO DAILY hydrocodone-acetaminophen 7.5-300 mg tablet 1 tab PO Q6H PRN (Reason: chronic pain) 5 Days Qty: 20 0RF Referrals Follow up/Referrals: Karlee Whatley MD [Primary Care Provider] - See instructions Khoa Villeda DO [Staff Physician] - See instructions Activity Restrictions/Add. Instructions Additional Instructions/Restrictions: You were evaluated in the emergency department today. At this time, you do not have a blood clot in your arm and x-rays do not demonstrate any issues with your bones aside from arthritis. Please take Tylenol every 4-6 hours at home as needed for pain. Follow-up closely with orthopedics as well as your primary care provider for reassessment. Return to the emergency department for any new or worsening symptoms. Clinical Impressions Clinical Impression: Pain in right forearm Instructions Patient Instructions: DI for Wrist Strain, DI for Forearm Muscle Strain Discharge ED Provider: Fiordaliza Mayes General Adult HPI General Chief complaint: Extremity Injury, Upper Stated complaint: possible blood clot in right arm, sent from [facility] Time Seen by Provider: 08/25/23 15:36 Mode of Arrival: Ambulatory Source of Information: Patient and Relative Limitations: No Limitations Description of Symptoms (Recalled from ER Triage Doc. by RN): pt is here today due to right forearm pain x 4 days and they are worried about a blood clot, sent here from pcp office History of Present Illness HPI narrative: This patient is an 88-year-old male with a history of hypertension, hyperlipidemia, CKD, and GERD presenting to the emergency department for evaluation with concern for right forearm pain. Patient states that he cannot remember any trauma or injuries, but he started having pain in the ulnar aspect of his right forearm 3 or 4 days ago. It got so bad yesterday that he could not use a cart at the store to steer himself around. He had to reach across with his left arm to try and steer. Today, the pain became so bad that he took norco. His daughter took him to his primary care's office, who evaluated him and was concerned for blood clot, so she sent him to the ED for further evaluation and management. He states that the pain is constant and does not change with movement. He denies any associated fever, skin color changes, numbness, tingling, or significant swelling. He denies experiencing anything like this in the past. Related Data Home Medications Medication Instructions Recorded Confirmed aspirin 25 mg-dipyridamole 200 mg 1 cap PO HS Blood thinner 01/21/20 12/20/21 capsule,ext.release 12 hr multiphase (Aggrenox) aspirin 81 mg tablet,delayed 81 mg PO DAILY heart health\ 01/21/20 12/20/21 release (Adult Low Dose Aspirin) hydrochlorothiazide 12.5 mg tablet 12.5 mg PO DAILY heart 01/21/20 12/20/21 meclizine 12.5 mg tablet 12.5 mg PO DAILY inner ear 01/21/20 12/20/21 nitroglycerin 0.4 mg sublingual 0.4 mg sublingual Q5M PRN Chest 01/21/20 12/20/21 tablet Pain omeprazole magnesium 20 mg 20 mg PO DAILY GERD 01/21/20 12/20/21 tablet,delayed release (Prilosec OTC) propafenone 150 mg tablet 150 mg PO Q8H heart 01/21/20 12/20/21 rosuvastatin 5 mg tablet 5 mg PO QODHS Cholesterol 01/21/20 12/20/21 coenzyme Q10 100 mg capsule 100 mg PO DAILY heart 12/20/21 12/20/21 (CoQ-10) Previous Rx's Medication Instructions Recorded hydrocodone 7.5 mg-acetaminophen 1 tab PO Q6H PRN chronic pain 5 12/21/21 300 mg tablet days #20 tabs diclofenac sodium 1 % topical gel 2 g topical QID #100 grams 08/25/23 (Arthritis Pain (diclofenac)) prednisone 50 mg tablet 50 mg PO DAILY 5 days #5 tabs 08/25/23 Allergies Allergy/AdvReac Type Severity Reaction Status Date / Time Penicillins Allergy Severe Anaphylaxis Verified 12/20/21 21:46 codeine AdvReac Severe Hallucinati Verified 12/20/21 21:46 [facility] Disclaimer: The information contained in this section may have been updated after the patient was seen, as this information can be updated by other users. Medical History Chronic kidney disease High cholesterol Hypertension Melanoma History of stroke Surgical History H/O heart artery stent History of back surgery History of cholecystectomy History of prostate surgery H/O hernia repair Social History Smoking Status: Never smoker alcohol intake: former substance use type: denies use current occupational status: retired Travel in the last 8 weeks: None household members: spouse and family housing: house ROS Obtained: Yes All systems reviewed & no additional complaints except as documented Physical Exam General General appearance: alert and in no apparent distress Head Head exam: atraumatic and normocephalic Eye Eye exam: Present normal appearance, PERRL and EOMI ENT ENT exam: Present normal exam, normal oropharynx, mucous membranes moist and normal external ear exam Neck Neck exam: Present normal inspection, full ROM and trachea midline; Absent tenderness Chest Chest inspection: Present normal inspection and symmetric chest wall rise; Absent tenderness Respiratory Respiratory exam: Present normal lung sounds bilaterally; Absent respiratory distress, wheezes, stridor or accessory muscle use Cardiovascular Cardiovascular exam: Present regular rate and normal rhythm Abdominal Exam Abdominal exam: Present soft; Absent distention, tenderness or guarding Extremities Exam Extremities exam: Present full ROM, tenderness (Tenderness to palpation of the distal ulnar aspect of the right forearm extending into the ulnar aspect of the right palm at the hypothenar eminence. No significant soft tissue swelling, redness, warmth, or other concerns. He is neurovascularly intact distally with full range of motion) and normal capillary refill; Absent edema Back Exam Back exam: Present normal inspection and full ROM; Absent tenderness Neurological Exam Neurological exam: Present alert, oriented X3, CN II-XII intact and normal gait; Absent motor sensory deficit Psychiatric Psychiatric exam: Present normal affect and normal mood Skin Skin exam: Present warm and dry Medical Decision Making Medical Records Medical records reviewed: Yes I reviewed the patient's medical records. Baljit Inquiry Pt receiving controlled substance: No Risks and benefits of using a controlled substance: were not discussed with pt by me Vital Signs: 08/25/23 15:34 08/25/23 15:49 08/25/23 16:59 Temperature 97.9 F 98.0 F Temperature Source Oral Pulse Rate 62 Pulse Rate [Right Radial] 69 Respiratory Rate 20 20 Blood Pressure 140/61 140/61 Blood Pressure [Right Arm] 140/61 Blood Pressure Mean 87 Blood Pressure Mean [Right Arm] 87 02 Sat by Pulse Oximetry 97 Oxygen Delivery Method Room Air Room Air Lab Data Lab results reviewed: Yes I reviewed the patient's lab results. Orders (Tests/Meds): ED MEDICATIONS Discontinued Medications Generic Name Dose Route Start Last Admin Trade Name Coco PRN Reason Stop Dose Admin Acetaminophen 1,000 mg 08/25/23 15:44 08/25/23 15:52 Acetaminophen 500mg Tab PO 08/25/23 15:45 Not Given ONCE ONE Hydrocodone Bitart/Acetaminophen 1 tab 08/25/23 15:52 08/25/23 15:59 Hydrocodone/Apap 5/325 Mg Tablet PO 08/25/23 15:53 1 tab ONCE ONE Administration Naproxen 500 mg 08/25/23 15:45 08/25/23 15:52 Naproxen 500mg Tablet PO 08/25/23 15:46 Not Given ONCE ONE ORDERS Category Date Time Status Forearm XR right 2 views [XR forearm RT 2V] Stat Exams 08/25/23 15:43 Completed Hand XR right minimum 3 views [XR hand RT min 3V] Stat Exams 08/25/23 15:43 Completed Wrist XR right minimum 3 views [XR wrist RT min 3V] Exams 08/25/23 15:43 Completed Stat CA venous doppler UE RT Stat Y 08/25/23 15:43 Completed Medical Decision Narrative: In summary, this patient is a 88-year-old male presenting to the Emergency Department for evaluation of atraumatic right forearm and hand pain. Differential diagnoses considered include but are not limited to tendinitis, DVT, arthritis. Ruling out the most morbid conditions drove assessment. On exam, the patient is well-appearing. He has no significant soft tissue swelling, redness, or other concerns to suggest cellulitis. Low suspicion for DVT on exam, however PCP was concerned so will obtain DVT Ultrasound. Will also obtain x-rays, though patient cannot remember a specific injury. He has full intact range of motion of his joints and is neurovascularly intact, which is reassuring. He was given another oral Eclectic for pain control. I independently interpreted x-ray and US prior to the radiologist read and noted no acute DVT and no obvious fracture. Please see their read for final interpretation. Ultimately, feel the patient likely has tendinitis as a cause of his pain. He cannot take NSAIDs. After shared decision make with him, we will trial a week of prednisone as well as diclofenac gel to see if this helps with his symptoms. I also given instructions for close follow-up with orthopedics. Given his significant pain which is worse with movement, he was provided with a wrist brace to help support. Patient was discharged with very strict return precautions. Critical Care Critical Care Time Critical Care Time: No
--- NOTE | 2023-08-25 16:04 | PC.NURSE ---
CV at BS
[2023-08-25 16:59] VITALS: BP 140/61; PULSE 62; RESP 20; TEMP 36.7; O2SAT 98
== END 2023-08-25 17:00 | disposition home or self-care (01) ==
PROVIDERS: Emergency Provider Emergency Medicine; PCP Family Medicine
DX: M79.631 Pain in right forearm (principal); N18.9 Chronic kidney disease, unspecified; K21.9 Gastro-esophageal reflux disease without esophagitis; E78.5 Hyperlipidemia, unspecified; I12.9 Hypertensive chronic kidney disease with stage 1 through stage 4 chronic kidney disease, or unspecified chronic kidney disease
CPT/HCPCS: 73090; 73110; 73130; 93971; 99284

== ENCOUNTER 2023-09-01 10:53 | Outpatient (CLI) | payer MEDICARE, OTHER, SELFPAY ==
[2023-09-01 11:03] LABS: Microscopic, Urine URINE MICROSCOPIC (MICROSCOPIC)
[2023-09-01 11:26] LABS: Basophils % 0.3 % (0.1-2.0); Eosinophils # 0.1 K/mm3 (0.0-0.4); Eosinophils % 1.8 % (0.1-12.0); Hematocrit 34.6 % (42.0-52.0); Hemoglobin 12.5 g/dL (14.1-18.0); Lymphocytes # 1.3 K/mm3 (0.7-4.5); Lymphocytes % 24.8 % (10-50); Mean Corpuscular HGB Conc 36.1 g/dL (31.8-35.4); Mean Corpuscular Hemoglobin 37.2 pg (27.0-31.2); Mean Corpuscular Volume 103.1 fl (80-94); Mean Platelet Volume 8.7 fl (7.4-10.4); Monocytes # 0.4 K/mm3 (0.1-1.0); Monocytes % 8.5 % (1.7-9.3); Neutrophils # 3.3 K/mm3 (1.8-7.8); Neutrophils % 64.5 % (37.0-80.0); Platelet Count 184 K/mm3 (142-424); Red Blood Count 3.36 M/mm3 (4.60-6.20); White Blood Count 5.1 K/mm3 (4.8-10.8)
[2023-09-01 11:59] LABS: Chloride 105 mmol/L (98-107); Potassium 4.2 mmoL/L (3.5-5.1)
[2023-09-01 12:01] LABS: Alanine Aminotransferase 12 U/L (12-78); Aspartate Amino Transferase 22 U/L (17-59); Blood Urea Nitrogen 31 mg/dl (9-20); Estimated Glomerular Filt Rate 48 ml/min (>60); GFR (African American) 58 ML/MIN (>60)
[2023-09-01 12:02] LABS: Albumin Level 3.5 g/dl (3.5-5.0); Albumin/Globulin Ratio 1.5 (1.1-1.8); Alkaline Phosphatase 75 U/L (38-126); Bilirubin,Total 0.5 mg/dl (0.2-1.3); Calcium 8.8 mg/dl (8.4-10.2); Carbon Dioxide 30 mmol/L (22.0-30.0); Chol/HDL Ratio 2.5 (1-3.5); Cholesterol 154 mg/dl (140-200); Globulin 2.4 g/dL (1.3-3.2); Glucose 91 mg/dl (74-100); HDL Cholesterol 61 mg/dl (40-60); Total Protein,Serum 5.9 g/dl (6.3-8.2); Triglycerides 92 mg/dl (30-150); VLDL Cholesterol 18 mg/dL (0-40)
[2023-09-01 12:09] LABS: Appearance,Urine CLEAR (Clear); Bilirubin,Urine Negative (Negative); Blood, Urine Negative (Negative); Color,Urine YELLOW (Yellow); Glucose,Urine (UA) Negative (Negative); Ketones,Urine Negative (Negative); Leukocyte Esterase,Urine Negative (Negative); Nitrate,Urine Negative (Negative); PH,Urine 5.5 (5.0-8.5); Protein,Urine Negative (Negative); Urobilinogen,Urine 0.2 EU/dl (0.2)
[2023-09-01 12:20] LABS: T4 (Thyroxine) 9.9 ug/dl (5.53-11.0); Triiodothryronine (T3) Uptake 40 % (23.5-40.5)
[2023-09-01 12:27] LABS: RBC,Urine Occasional #/hpf (0-3); Squamous Epithelial Cell,Urine Occasional #/hpf (0-5); WBC,Urine Occasional #/hpf (0-3)
[2023-09-01 12:49] LABS: Direct LDL Cholesterol 53.35 mg/dL (100-129)
[2023-09-01 13:08] LABS: Thyroid Stimulating Hormone 2.89 uIU/mL (0.465-4.68)
[2023-09-01 13:33] LABS: Anion Gap 9.2 mEq/L (5-15); Sodium 140 mmol/L (136-145)
== END 2023-09-01 23:59 | disposition home or self-care (01) ==
LOC: LAB 10:55
PROVIDERS: PCP Family Medicine; Visit Provider Internal Medicine Nephrology
DX: I12.9 Hypertensive chronic kidney disease with stage 1 through stage 4 chronic kidney disease, or unspecified chronic kidney disease (principal); E78.5 Hyperlipidemia, unspecified; N18.31 Chronic kidney disease, stage 3a; I25.10 Atherosclerotic heart disease of native coronary artery without angina pectoris; I10 Essential (primary) hypertension; N39.0 Urinary tract infection, site not specified; Z85.46 Personal history of malignant neoplasm of prostate
CPT/HCPCS: 80053; 80061; 81001; 84436; 84443; 84479; 85025

== ENCOUNTER 2024-02-17 11:02 | Outpatient (CLI) | payer MEDICARE, OTHER, SELFPAY ==
--- NOTE | 2024-02-17 11:13 | XR_ITS ---
FINAL REPORT CLINICAL HISTORY: PRISON USE OF ANTIARRHYYHMIC DRUG FINDINGS: There is no evidence of effusion or other pleural disease. There is elevation of the left diaphragm. There is compressive atelectasis in the left lung base. The osseous structures demonstrate mild dextroscoliosis. The cardiac silhouette is unremarkable. IMPRESSION: No evidence of developing interstitial lung disease. Elevation of left diaphragm with compressive atelectasis. Reviewed, Interpreted and Dictated by Annabelle Petty MD Transcribed by Kylah Mendez Authenticated and [facility]
== END 2024-02-17 23:59 | disposition home or self-care (01) ==
LOC: RAD 11:04
PROVIDERS: PCP Pediatrics; Visit Provider Internal Medicine Cardiovascular Disease
DX: Z79.899 Other long term (current) drug therapy (principal)
CPT/HCPCS: 71046

== ENCOUNTER 2024-05-04 10:33 | Outpatient (CLI) | payer MEDICARE, OTHER, SELFPAY ==
[2024-05-04 10:45] LABS: Microscopic, Urine URINE MICROSCOPIC (MICROSCOPIC)
[2024-05-04 11:15] LABS: Basophils % 0.4 % (0.1-2.0); Eosinophils # 0.1 K/mm3 (0.0-0.4); Eosinophils % 2.4 % (0.1-12.0); Hematocrit 37.2 % (42.0-52.0); Hemoglobin 12.1 g/dL (14.1-18.0); Lymphocytes # 1.4 K/mm3 (0.7-4.5); Lymphocytes % 30.6 % (10-50); Mean Corpuscular HGB Conc 32.5 g/dL (31.8-35.4); Mean Corpuscular Hemoglobin 32.4 pg (27.0-31.2); Mean Corpuscular Volume 99.5 fl (80-94); Mean Platelet Volume 10.6 fl (7.4-10.4); Monocytes # 0.5 K/mm3 (0.1-1.0); Neutrophils # 2.5 K/mm3 (1.8-7.8); Neutrophils % 55.4 % (37.0-80.0); Platelet Count 213 K/mm3 (142-424); Red Blood Count 3.74 M/mm3 (4.60-6.20); Red Cell Distribution Width 12.6 % (11.5-17.5); White Blood Count 4.5 K/mm3 (4.8-10.8)
[2024-05-04 11:29] LABS: Chloride 110 mmol/L (98-107)
[2024-05-04 11:30] LABS: Albumin Level 4.2 g/dl (3.5-5.0); Potassium 4.6 mmoL/L (3.5-5.1); Sodium 138 mmol/L (136-145)
[2024-05-04 11:33] LABS: Anion Gap 9.6 mEq/L (5-15); Blood Urea Nitrogen 37 mg/dl (9-20); Calcium 9.1 mg/dl (8.4-10.2); Carbon Dioxide 23 mmol/L (22.0-30.0); Estimated Glomerular Filt Rate 38 ml/min (>60); GFR (African American) 46 ML/MIN (>60); Glucose 88 mg/dl (74-100); Phosphorous 3.4 mg/dl (2.5-4.5)
[2024-05-04 11:47] LABS: Appearance,Urine CLEAR (Clear); Bilirubin,Urine Negative (Negative); Blood, Urine Negative (Negative); Color,Urine YELLOW (Yellow); Glucose,Urine (UA) Negative (Negative); Ketones,Urine Negative (Negative); Leukocyte Esterase,Urine Negative (Negative); Nitrate,Urine Negative (Negative); PH,Urine 5.5 (5.0-8.5); Protein,Urine Negative (Negative); Specific Gravity, Urine 1.025 (1.005-1.030); Urobilinogen,Urine 0.2 EU/dl (0.2)
[2024-05-04 11:53] LABS: Bacteria,Urine Trace /lpf; Squamous Epithelial Cell,Urine Occasional #/hpf (0-5)
== END 2024-05-04 23:59 | disposition home or self-care (01) ==
LOC: LAB 10:37
PROVIDERS: PCP Pediatrics; Visit Provider Internal Medicine Nephrology
DX: I12.9 Hypertensive chronic kidney disease with stage 1 through stage 4 chronic kidney disease, or unspecified chronic kidney disease (principal)
CPT/HCPCS: 36415; 80069; 81001; 85025